=== PATIENT | male | born 1995 | race Caucasian/White ===

== ENCOUNTER 2017-10-01 19:20 | Emergency (ER) | payer SELFPAY ==
[~2017-10-01] VITALS: Ht 172.7 cm; Wt 69.9 kg
[~2017-10-01 19:20] MED LIST: ABILIFY5 MG PO; ALBUTEROL0.09 MG/A2 IH; ANTIBIOTIC O500 U/GM TP; BACTRIM DS 8001 TA1 PO; CETIRIZINE HCL10 M1 PO; CIPRO250 MG PO; CLARITIN10 MG PO; CLEOCIN150 MG PO; CLINDAMYCIN HC300 MG PO; CONCERTA36 MG PO; HYDROCODONE BIT1 T11 PO; LAMICTAL ODT50 MG MM; LAMICTAL150 MG PO; METHYLPHENIDATE54 M1 PO; MOTRIN400 MG PO; MOTRIN800 MG PO; NAPROSYN500 MG PO; NORCO 5-325 TA1 EACH PO; RISPERDAL1 MG PO; ROBAXIN500 MG PO; SEPTRA DS 800 M1 TAB PO; SEROQUEL XR400 MG PO; TRAZODONE50 MG PO; VITAMIN; ZOFRAN4 MG PO
[2017-10-01 20:51] VITALS: BP 118/53
== END 2017-10-01 20:16 | disposition home or self-care (01) ==
LOC: ED 19:20
DX: S02.2XXA Fracture of nasal bones, initial encounter for closed fracture (principal); F17.200 Nicotine dependence, unspecified, uncomplicated; Z91.012 Allergy to eggs; W50.0XXA Accidental hit or strike by another person, initial encounter; Y93.89 Activity, other specified; Y92.89 Other specified places as the place of occurrence of the external cause; Y99.8 Other external cause status

== ENCOUNTER 2018-03-31 10:37 | Emergency (ER) | payer SELFPAY ==
[~2018-03-31] VITALS: Ht 175.2 cm; Wt 70.8 kg
[2018-03-31 10:41] VITALS: BP 134/60
== END 2018-03-31 13:55 | disposition home or self-care (01) ==
LOC: ED 10:37
DX: S20.212A Contusion of left front wall of thorax, initial encounter (principal); F17.200 Nicotine dependence, unspecified, uncomplicated; Z91.012 Allergy to eggs; W22.8XXA Striking against or struck by other objects, initial encounter; Y93.89 Activity, other specified; Y92.89 Other specified places as the place of occurrence of the external cause; Y99.8 Other external cause status

== ENCOUNTER 2019-03-03 15:26 | Emergency (ER) | payer OTHER ==
[~2019-03-03] VITALS: Ht 175.2 cm; Wt 72.6 kg
[~2019-03-03 15:26] MED LIST changes: +ZANTAC 150150 MG PO
[2019-03-03 15:28] VITALS: BP 120/43
[2019-03-03] MEDS ORDERED: IBU800 MG PO (15:56)
[2019-03-03] MEDS ORDERED: DOXYCYCLINE100 M3 PO (15:56)
== END 2019-03-03 16:15 | disposition home or self-care (01) ==
LOC: ED 15:26
DX: L02.415 Cutaneous abscess of right lower limb (principal); L03.115 Cellulitis of right lower limb; J45.909 Unspecified asthma, uncomplicated; F17.200 Nicotine dependence, unspecified, uncomplicated; Z91.012 Allergy to eggs; Z79.899 Other long term (current) drug therapy; Z86.14 Personal history of Methicillin resistant Staphylococcus aureus infection

== ENCOUNTER → 2021-05-31 | Outpatient (CLI) | payer OTHER ==
[~2021-05-31] MED LIST changes: +DOXYCYCLINE100 M3 PO; +IBU800 MG PO
[2021-05-31 16:11] LABS: CHOLESTEROL 226 mg/dL (<200); LDL CHOLESTEROL 161 mg/dL (9-159); TRIGLYCERIDES 120 mg/dl (<150)
== END | disposition home or self-care (01) ==
LOC: LAB 15:10
PROVIDERS: ATTEND Psychiatry & Neurology Psychiatry
DX: Z51.81 Encounter for therapeutic drug level monitoring (principal); Z79.899 Other long term (current) drug therapy

== ENCOUNTER 2021-07-20 08:05 | Emergency (ER) | payer OTHER ==
[~2021-07-20] VITALS: Ht 172.7 cm; Wt 72.6 kg
[2021-07-20 08:13] VITALS: BP 129/80
== END 2021-07-20 08:58 | disposition home or self-care (01) ==
LOC: ED 08:05
DX: Z13.89 Encounter for screening for other disorder (principal)

== ENCOUNTER 2021-09-18 12:02 | Emergency (ER) | payer OTHER ==
[~2021-09-18] VITALS: Ht 175.2 cm; Wt 72.6 kg
[2021-09-18 12:10] VITALS: BP 125/71
[2021-09-18] MEDS ORDERED: ZYPREXA20 M1 PO (12:11)
[2021-09-18] MEDS ORDERED: ZOFRAN4 MG PO (12:33)
== END 2021-09-18 12:57 | disposition home or self-care (01) ==
LOC: ED 12:02
DX: A08.4 Viral intestinal infection, unspecified (principal); J45.909 Unspecified asthma, uncomplicated; Z91.012 Allergy to eggs; Z90.89 Acquired absence of other organs

== ENCOUNTER → 2021-11-06 | Outpatient (CLI) | payer OTHER ==
[~2021-11-06] MED LIST changes: +ZYPREXA20 M1 PO
== END | disposition home or self-care (01) ==
LOC: LAB 11:33
PROVIDERS: ATTEND Family Medicine
DX: R79.89 Other specified abnormal findings of blood chemistry (principal); R53.83 Other fatigue

== ENCOUNTER 2022-02-21 12:20 | Emergency (ER) | payer OTHER ==
[2022-02-21 12:30] VITALS: BP 133/74
== END 2022-02-21 15:29 | disposition home or self-care (01) ==
LOC: ED 12:20
DX: R52 Pain, unspecified (principal); Z20.822 Contact with and (suspected) exposure to COVID-19; F17.200 Nicotine dependence, unspecified, uncomplicated

== ENCOUNTER 2022-02-25 12:28 | Emergency (ER) | payer OTHER ==
[~2022-02-25] VITALS: Ht 175.2 cm; Wt 65.8 kg
[2022-02-25 12:56] VITALS: BP 136/75
[2022-02-25] MEDS ORDERED: CEFDINIR300 MG PO (13:04)
[2022-02-25] MEDS ORDERED: CETIRIZINE10 MG PO (13:04)
== END 2022-02-25 13:15 | disposition home or self-care (01) ==
LOC: ED 12:28
DX: H66.92 Otitis media, unspecified, left ear (principal)

== ENCOUNTER 2023-02-18 10:29 | Emergency (ER) | payer OTHER ==
[~2023-02-18] VITALS: Ht 172.7 cm; Wt 68.0 kg
[~2023-02-18 10:29] MED LIST changes: +CEFDINIR300 MG PO; +CETIRIZINE10 MG PO
[2023-02-18 10:58] VITALS: BP 129/60
[2023-02-18] MEDS ORDERED: ONDANSETRON ODT8 MG PO (12:55)
== END 2023-02-18 12:56 | disposition home or self-care (01) ==
LOC: ED 10:29
DX: R11.2 Nausea with vomiting, unspecified (principal); J45.909 Unspecified asthma, uncomplicated; Z91.012 Allergy to eggs; Z79.899 Other long term (current) drug therapy

== ENCOUNTER 2023-11-02 13:44 | Emergency (ER) | payer OTHER ==
[~2023-11-02] VITALS: Ht 175.2 cm; Wt 67.6 kg
[~2023-11-02 13:44] MED LIST changes: +ONDANSETRON ODT8 MG PO
[2023-11-02 14:15] VITALS: BP 150/72
[2023-11-02] MEDS ORDERED: CEPHALEXIN500 M1 PO (15:59)
== END 2023-11-02 16:05 | disposition home or self-care (01) ==
LOC: ED 13:44
DX: S62.035A Nondisplaced fracture of proximal third of navicular [scaphoid] bone of left wrist, initial encounter for closed fracture (principal); J45.909 Unspecified asthma, uncomplicated; Z91.012 Allergy to eggs; Z79.899 Other long term (current) drug therapy; V89.2XXA Person injured in unspecified motor-vehicle accident, traffic, initial encounter; Y93.I9 Activity, other involving external motion; Y92.488 Other paved roadways as the place of occurrence of the external cause; Y99.8 Other external cause status

== ENCOUNTER 2023-12-30 09:03 | Emergency (ER) | payer SELFPAY ==
[~2023-12-30] VITALS: Ht 175.2 cm; Wt 68.0 kg
[~2023-12-30 09:03] MED LIST changes: +CEPHALEXIN500 M1 PO
[2023-12-30 09:31] VITALS: BP 144/69
== END 2023-12-30 09:40 | disposition home or self-care (01) ==
LOC: ED 09:03
DX: S93.401A Sprain of unspecified ligament of right ankle, initial encounter (principal); J45.909 Unspecified asthma, uncomplicated; F41.9 Anxiety disorder, unspecified; F31.9 Bipolar disorder, unspecified; F90.9 Attention-deficit hyperactivity disorder, unspecified type; Z91.012 Allergy to eggs; Z98.890 Other specified postprocedural states; Z87.891 Personal history of nicotine dependence; V89.2XXA Person injured in unspecified motor-vehicle accident, traffic, initial encounter; Y93.89 Activity, other specified; Y92.410 Unspecified street and highway as the place of occurrence of the external cause; Y99.0 Civilian activity done for income or pay

== ENCOUNTER → 2025-05-24 | Outpatient (CLI) | payer OTHER | END | disposition home or self-care (01) | LOC: LAB 09:23 | PROVIDERS: ATTEND Family Medicine | DX: R79.89 Other specified abnormal findings of blood chemistry (principal); R53.83 Other fatigue ==